=== PATIENT | male | born 1995 | race African-American/Black ===

== ENCOUNTER → 2019-04-08 | Outpatient (CLI) | payer OTHER ==
--- NOTE | 2019-04-08 23:22 | MR ---
EXAMINATION TYPE: MR shoulder LT wo con DATE OF EXAM: 04/08/2019 COMPARISON: None HISTORY: left shoulder pain, first noticed 6 months ago TECHNIQUE: Multiplanar, multisequence imaging of the left shoulder is performed without contrast. FINDINGS: Rotator Cuff: No evidence of rotator cuff tear. There is intrasubstance signal seen involving the ant erior fibers of the distal supraspinatus tendon compatible tendinosis no diagnostic evidence of tear or retraction. Acromioclavicular Joint: Joint space maintained. Type II acromion does result in mild mass effect upo n the supraspinatus tendon.. Glenohumeral Joint: Joint spaces preserved. No sizable joint effusion. Glenohumeral ligaments intact. Labrum: The labrum appears grossly intact given limitation of non-arthrogram study. Biceps Tendon: The long head of biceps is in normal location within bicipital groove. Bone marrow signal: Present area of abnormal signal involving the anterior epiphysis of the humeral h ead suspicious for a subchondral fracture. Osteonecrosis less likely consideration. IMPRESSION: 1. Marrow edema involving the anterior humeral head with thin linear area of abnormal signal on T1 an d T2 imaging most likely the basis of the subchondral fracture. Correlate for history of trauma. 2. Supraspinatus tendinosis with no definite tear.
== END | disposition home or self-care (01) ==
LOC: RADMRIMAIN 15:45
PROVIDERS: ATTEND Nurse Practitioner Acute Care
DX: R93.7 Abnormal findings on diagnostic imaging of other parts of musculoskeletal system (principal); M67.814 Other specified disorders of tendon, left shoulder

== ENCOUNTER → 2024-03-30 | Outpatient (CLI) | payer BC ==
--- NOTE | 2024-03-30 21:04 | MR ---
INDICATION: Patient age:Male; 28 years old; Reason for study: M54.16; [facility]. COMPARISONS: Lumbar spine radiograph 03/23/2024. TECHNIQUE: Multi planar, multi sequence imaging was performed utilizing: T1-weighted, T2-weighted, a nd turbo inversion recovery imaging of the lumbar spine. The patient was not given contrast. FINDINGS: The lumbar vertebral bodies do have preserved heights and alignment. Straightening of the normal lumbar lordosis. Mild disc desiccation and height loss of the L5-S1 disc. No abnormal STIR si gnal. The conus medullaris and the distal spinal cord do appear unremarkable with regards to their si gnal intensity and morphology. T12-L1: No significant disc pathology is identified. The spinal canal and neural foramen are patent L1-L2: No significant disc pathology is identified. The spinal canal and neural foramen are patent. L2-L3: No significant disc pathology is identified. The spinal canal and neural foramen are patent. L3-L4: No significant disc pathology is identified. The spinal canal and neural foramen are patent. L4-L5: No significant disc pathology is identified. The spinal canal and neural foramen are patent L5-S1: Right subarticular zone disc protrusion with close approximation of the exiting S1 nerve root. There is associated annular tear. The left neural foramen is patent. Mild right neural foraminal ángel nosis. Other significant findings: None. IMPRESSION: L5-S1 right-sided subarticular zone disc protrusion with mild right neural foraminal stenosis as desc ribed above. [facility], , 03/30/2024 9:01 PM
== END | disposition home or self-care (01) ==
LOC: RADMRIMAIN 20:15
PROVIDERS: ATTEND Orthopaedic Surgery
DX: M48.07 Spinal stenosis, lumbosacral region (principal); M51.27 Other intervertebral disc displacement, lumbosacral region; M47.26 Other spondylosis with radiculopathy, lumbar region
CPT/HCPCS: 72148